=== PATIENT | female | born 2000 | race Caucasian/White ===

== ENCOUNTER 2021-07-13 23:56 | Emergency (ER) | payer SELFPAY ==
[~2021-07-13] VITALS: Ht 157.5 cm; Wt 50.8 kg
[2021-07-13 23:58] VITALS: BP 109/61
== END 2021-07-14 06:58 | disposition left against medical advice (07) ==
LOC: ER 23:56
DX: G43.909 Migraine, unspecified, not intractable, without status migrainosus (principal); R11.2 Nausea with vomiting, unspecified; Z53.21 Procedure and treatment not carried out due to patient leaving prior to being seen by health care provider

== ENCOUNTER 2025-04-07 05:54 | Inpatient (IN) | payer MEDICAID, OTHER ==
[~2025-04-07] VITALS: Ht 157.5 cm; Wt 54.5 kg
[2025-04-07 06:33] VITALS: O2SAT 99
[2025-04-07] MEDS: SODIUM CHLORIDE 0.9% 1,000 ML IV ONE ×3 (06:38→09:12)
--- NOTE | 2025-04-07 06:41 | ED.PDOC ---
SOCK KNITTER HPI Comments This is a 25 year old female KEMALA presenting to the ED with chief complaint of vaginal bleeding with possible miscarriage. Patient reports that she has been experiencing heavy vaginal bleeding with associated clots since yesterday, but was too scared to come to the hospital until now due to the heavy bleeding. EMS relays that the patient was told last week at [facility] that she was 8-9 weeks according to their US, but has not seen an OBGYN since then. EMS states patient has history of 1 in the past and 1 miscarriage due to ectopic , losing her left fallopian tube in the process. EMS notes patient's family estimated about 3L of blood loss since yesterday. Patient denie s any N/V, chest pain, SOB, fever, or chills. Chief Complaint: Vaginal Bleed Time Seen by MD: 06:35 Reviewed Notes: Nurses Notes, Planer Tailer Notes, Medications, Allergies Allergies: Coded Allergies: NO KNOWN ALLERGIES (Unverified , 07/14/21) Information Source: Patient, Emergency Med Personnel Mode of Arrival: EMS Timing: Days Prehospital treatment: None Severity: Severe Bleeding Quality: Bright Red, Clotted Onset Of Mass/Bleeding: Spontaneous Sexual Activity: Last Consensual [place]: Unknown History of: Previous Ectopic, Current Associated Signs and Symptoms: Vaginal Bleeding Past Medical History PAST MEDICAL HISTORY: Denies Surgical History: Denies all surgeries SPRING COILER History: Ectopic , Therapeutic 3 AB 3 Family History Family History: Reviewed,noncontributory to illness Social History Smoker: Non-Smoker Alcohol: Occasionally Drugs: Marijuana Lives In: Home Constitutional: denies: chills, diaphoresis, fatigue, fever, malaise, sweats, weakness, others EENTM: denies: blurred vision, double vision, ear bleeding, ear discharge, ear drainage, ear pain, ear ringing, eye pain, eye redness, hearing loss, mouth pain, mouth swelling, nasal discharge, nose bleeding, nose congestion, nose pain, photophobia, tearing, throat pain, throat swelling, voice changes, others Respiratory: denies: cough, hemoptysis, orthopnea, SOB at rest, shortness of breath, SOB with excertion, stridor, wheezing, others Cardiovascular: denies: chest pain, dizzy spells, diaphoresis, Dyspnea on exertion, edema, irregular heart beat, left arm pain, lightheadedness, palpitations, PND, syncope, others Gastrointestinal: denies: abdomen distended, abdominal pain, blood streaked bowels, constipated, diarrhea, dysphagia, difficulty swallowing, hematemesis, melena, nausea, poor appetite, poor fluid intake, rectal bleeding, rectal pain, vomiting, others Genitourinary: reports: abnormal vagina bleeding; denies: burning, dyspareunia, dysuria, flank pain, frequency, hematuria, incontinence, pain, , vagina discharge, urgency, others Neurological: denies: dizziness, fainting, headache, left sided numbness, left sided weakness, numbness, paresthesia, pre-existing deficit, right sided numbness, right sided weakness, seizure, speech problems, tingling, tremors, weakness, others Musculoskeletal: denies: back pain, gout, joint pain, joint swelling, muscle pain, muscle stiffness, neck pain, others Integumetry: denies: bruises, change in color, change in hair/nails, dryness, laceration, lesions, lumps, rash, wounds, others Allergic/Immunocompromised: denies: Difficulty Healing, Frequent Infections, Hives, Itching, others Hematologic/Lymphatic: denies: anemia, blood clots, easy bleeding, easy bruising, swollen glands, others Endocrine: denies: excessive hunger, excessive sweating, excessive thirst, excessive urination, flushing, intolerance to cold, intolerance to heat, unexplained weight gain, unexplained weight loss, others Psychiatric: denies: anxiety, bipolar disorder, depression, hopeless, panic disorder, schizophrenia, sleepless, suicidal, others All Other Systems: Reviewed and Negative Physical Exam General Appearance: Moderate Distress, Normal HEENT: Normal ENT Inspection, Pharynx Normal, TMs Normal Neck: Full Range of Motion, Non-Tender, Normal, Normal Inspection Respiratory: Chest Non-Tender, Lungs Clear, No Accessory Muscle Use, No Respiratory Distress, Normal Breath Sounds Cardiovascular: No Edema, No JVD, No Murmur, No Gallop, Normal Peripheral Pulses, Regular Rate/Rhythm Breast Exam: Deferred Gastrointestinal: No Organomegaly, Non Tender, No Pulsatile Mass, Normal Bowel Sounds, Soft Genitalia: Deferred Pelvic: Deferred Rectal: Deferred Extremities: No calf tenderness, Normal capillary refill, Normal inspection, Normal range of motion, Non-tender, No pedal edema Musculoskeletal : Apperance: Normal Neurologic: Alert, vertical roll operator II-XII nml as Tested, No Motor Deficits, Normal Affect, Normal Mood, No Sensory Deficits Cerebellar Function: NOT DONE Reflexes: NOT DONE Skin: Dry, Pallor, Warm Peripheral Pulses: 3+ Radial (R), 3+ Radial (L) Lymphatic: No Adenopathy Was a procedure done? Was a procedure done?: No Differential Diagnosis (SPRING COILER) Vaginal Bleeding: - Complete, - Incomplete, Blood Loss Anemia, Ectopic , Menorrhagia X-Ray, Labs, Meds, VS Vital Signs Date Time Temp Pulse Resp B/P (MAP) Pulse Ox O2 Delivery O2 Flow Rate FiO2 04/07/25 09:02 77 16 112/64 04/07/25 08:46 Room Air* 0 21 04/07/25 08:44 98.3 89 15 112/64 (80) 98 98.3 04/07/25 07:16 97 20 106/68 04/07/25 07:15 98.2 77 16 112/64 (80) 99 98.2 04/07/25 06:35 98.0 96 15 103/67 (79) 99 98.0 04/07/25 06:33 99 Room Air* 0 21 04/07/25 06:02 97.6 87 18 102/70 (81) 100 97.6 Lab Test 04/07/25 06:47 Range/Units White Blood Count 14.6 H 4.4-10.8 10^3/uL Red Blood Count 3.57 L 4.0-5.20 10^6/uL Hemoglobin 10.7 L 12.2-16.2 g/dL Hematocrit 31.4 L 36.0-46.0 % Mean Corpuscular Volume 88.2 80.0-100.0 fL Mean Corpuscular Hemoglobin 30.1 28.0-32.0 pg Mean Corpuscular Hemoglobin Concent 34.1 32.0-36.0 g/dL Red Cell Distribution Width 14.0 11.8-14.3 % Platelet Count 352 140-450 10^3/uL Mean Platelet Volume 7.9 6.9-10.8 fL Neutrophils (%) (Auto) 84.5 H 37.0-80.0 % Lymphocytes (%) (Auto) 9.7 L 10.0-50.0 % Monocytes (%) (Auto) 5.4 0.0-12.0 % Eosinophils (%) (Auto) 0.1 0.0-7.0 % Basophils (%) (Auto) 0.3 0.0-2.0 % Neutrophils # (Auto) 12.3 H 1.6-8.6 10 ^3/uL Lymphocytes # (Auto) 1.4 0.4-5.4 10 ^3/uL Monocytes # (Auto) 0.8 0-1.3 10 ^3/uL Eosinophils # (Auto) 0 0-0.8 10 ^3/uL Basophils # (Auto) 0 0-0.2 10 ^3/uL Nucleated Red Blood Cells 0.0 % Prothrombin Time 10.6 9.3-11.8 sec Prothrombin Time INR 1.00 0.9-1.15 Activated Partial Thromboplast Time 22.2 L 24.5-34.5 SEC Beta HCG, Quantitative 07981.2 H 1.5-4.2 mIU/mL Current Medications Medications (Trade) Dose Ordered Sig/Beto Route Start Time Stop Time Status Last Admin Sodium Chloride 1,000 ml @ 1,000 mls/hr Q1H ONCE IV 04/07/25 06:45 04/07/25 07:44 DC 04/07/25 06:38 Sodium Chloride 1,000 ml @ 150 mls/hr Q6H40M ONCE IV 04/07/25 06:45 04/07/25 13:24 04/07/25 06:50 Ondansetron HCl (Zofran) 4 mg ONCE ONCE IV 04/07/25 07:15 04/07/25 07:16 DC 04/07/25 07:15 Morphine Sulfate 2 mg ONCE ONCE IV 04/07/25 07:15 04/07/25 07:16 DC 04/07/25 07:16 Patient pale. Vaginal bleeding. This is her 3rd with no live births. Vitals stable. Establish intravenous access. Was given fluids. OBGYN consultation. WBC elevated. Was given Rocephin. Ultrasound does reveal possible miscarriage. Explained to the patient. Continue monitoring. Time of 1ST Reevaluation: 07:40 Reevaluation 1ST: Unchanged Patient Education/Counseling: Diagnosis, Treatment Family Education/Counseling: No Family Present Additional Information Previous visits reviewed: 07/13/21 for headache The following tests were ordered, and results were reviewed by me: CBC, Type/Screen, UA, BHCG Quant, PTPTT, OB US Additional Information was gathered from interviewing the following independent historians: EMS I reviewed and agreed with the following test results read by other providers: OB US I discussed treatment and results with medical personnel and: patient Comprehensive systems review obtained and negative except for what is stated in the HPI. Departure 1 Departure Time of Disposition: 07:16 Impression: Primary Impression: Sepsis due to urinary tract infection Additional Impression: Vaginal bleeding affecting early Disposition: ADMITTED INPATIENT Admit to: Med Surg Condition: Guarded Critical Care Note Critical Care Time?: Yes (90 min-critical care time only) Critical care comment: Continue to monitor Stability Stability form required: No Heart Score Heart Score: Heart Score Response (Comments) Value History N/A 0 EKG N/A 0 Age N/A 0 Risk Factors N/A 0 Troponin N/A 0 Total 0 I personally scribed for SARA LEON MD ([email or web address]) on 04/07/25 at 06:41. Electronically submitted by Kennedy Sousa ([email or web address]). I personally scribed for SARA LEON MD ([email or web address]) on 04/07/25 at 06:41. Electronically submitted by Kennedy Sousa ([email or web address]). SARA LEON MD Apr 07, 2025 06:41
[2025-04-07] MEDS: ONDANSETRON HCL 4 MG/2 ML VIAL IV ONE ×2 (07:15→09:11)
[2025-04-07] MEDS: MORPHINE SULFATE INJ 2 MG/ml SYRG IV ONE ×2 (07:16→09:12)
[2025-04-07 07:28] LABS: Hematocrit 31.4 % (36.0-46.0); Hemoglobin 10.7 g/dL (12.2-16.2); Mean Corpuscular Hemoglobin 30.1 pg (28.0-32.0); Mean Corpuscular Volume 88.2 fL (80.0-100.0); Nucleated Red Blood Cells % 0.0 %
[2025-04-07 07:43] LABS: INR 1.0 (0.9-1.15); Partial Thromboplastin Time 22.2 SEC (24.5-34.5); Prothrombin Time 10.6 sec (9.3-11.8)
[2025-04-07 08:44] VITALS: PULSE 89; RESP 15; O2SAT 98
--- NOTE | 2025-04-07 08:56 | DVH ---
OB ULTRASOUND <14 WEEKS: HISTORY: misca TECHNIQUE: Multiple real-time grayscale sonographic images of the pelvis with duplex Doppler color f low, spectral and M-mode analysis. TRANSDUCERS: Transabdominal FINDINGS: The uterus measures 9.2 x 6.0 x 5.6 cm. The cervix not well visualized. Right ovary is not well visualized due to obscuration bowel gas. Left ovary measures 3.9 x 1.1 x 1.7 cm with normal Doppler color flow The endometrium is heterogeneously thickened measuring 2.7 cm. No evidence of internal flow on color doppler IMPRESSION: Heterogeneous and thickened endometrium measuring 2.7 cm suggestive of blood products. No evidence of internal flow on color doppler in the endometrium to suggest retained products of conception. No intrauterine is visualized at this time. Correlate with beta HCG and short-term follow- up pelvic ultrasound.
[2025-04-07] MEDS: cefTRIAXone 1GM/50ML D5W 50 ML IV ONE (09:21)
[2025-04-07] MEDS: CLINDAMYCIN 300MG IV 50 ML IV ONE (09:21)
[2025-04-07] MEDS ORDERED: TERBUTALINE SULFATE 1 MG/ML 1ML VIAL SC PRN (10:45)
[2025-04-07] MEDS: LACT. RINGERS/OXYTOCIN 20UNITS 1,000 ML IV SCH ×2 (10:45→15:30)
[2025-04-07] MEDS ORDERED: MORPHINE SULFATE INJ 2 MG/ml SYRG IV PRN (11:00)
[2025-04-07] MEDS ORDERED: ONDANSETRON HCL 4 MG/2 ML VIAL IV PRN (11:00)
[2025-04-07] MEDS ORDERED: HYDROcodone-ACET 5/325MG TAB PO PRN (11:00)
--- NOTE | 2025-04-07 11:15 | DVHHP2 ---
History of Present Illness Reason for Visit: Vaginal bleeding with possible miscarriage History of Present Illness Margarette Flores is a 25-year-old female with past medical history of ruptured ectopic status post with blood transfusions who presents to the ED with vaginal bleeding and possible miscarriage. Patient reports that the heavy vaginal bleeding started around 3:00 p.m. yesterday. She reports that she was about 9 weeks and found out when she was hospitalized at [facility]. Patient reports that she was in the hospital on March 24. She also reports that she had a prior ectopic in June. She reports that she went through about 8-10 pads since yesterday. Her boyfriend Anand is at the bedside. Patient reports that she was feeling weak yesterday and when she is trying to go to the restroom she had to lay down on the floor. She also reports that she was using marijuana and drinking before her . Patient denies any recent trauma or injury, recent sick contacts, recent travels, recent ingestion of spoiled food, abdominal pain, nausea, vomiting, diarrhea, urinary symptoms, chest pain, shortness of breath, fever, or chills. Past Medical History Ruptured ectopic Blood transfusions Past Surgical History: Family History: None Smoke: No ALCOHOL: none (Quit) Drugs: Marijuana (Quit) Lives: with Family Domestic Violence: Neg Review of Systems Other Vaginal bleeding Allergies: Coded Allergies: NO KNOWN ALLERGIES (Unverified , 07/14/21) Medications Current Medications Medications Dose Ordered Sig/Beto Route Start Time Stop Time Status Last Admin Dose Admin Oxytocin 1,000 ml @ 6 ml/hr Q24H IV 04/07/25 10:45 Terbutaline Sulfate 0.25 mg ONCE PRN SC 04/07/25 10:45 Exam Vital Signs Vital Signs Date Time Temp Pulse Resp B/P (MAP) Pulse Ox O2 Delivery O2 Flow Rate FiO2 04/07/25 09:12 89 15 112/64 04/07/25 08:46 Room Air* 0 21 04/07/25 08:44 98 04/07/25 08:44 98.3 98.3 General Appearance: Alert, Oriented X3, Cooperative, No acute distress HEENT: Atraumatic, PERRLA, EOMI, Mucous membr. moist/pink Respiratory: Clear to auscultation, Normal air movement Cardiovascular: Regular rate, Normal S1, Normal S2 Abdominal: Normal bowel sounds, Soft Extremities: Normal pulses Skin: No significant lesion Neuro: Normal speech, Strength at 5/5 X4 ext, Normal tone, Sensation intact Psych/Mental Status: Mental status NL, Mood NL Labs/Xrays Labs Test 04/07/25 09:30 04/07/25 06:47 Range/Units Lactic Acid Level 0.8 0.4-2.0 mmol/L White Blood Count 14.6 H 4.4-10.8 10^3/uL Red Blood Count 3.57 L 4.0-5.20 10^6/uL Hemoglobin 10.7 L 12.2-16.2 g/dL Hematocrit 31.4 L 36.0-46.0 % Mean Corpuscular Volume 88.2 80.0-100.0 fL Mean Corpuscular Hemoglobin 30.1 28.0-32.0 pg Mean Corpuscular Hemoglobin Concent 34.1 32.0-36.0 g/dL Red Cell Distribution Width 14.0 11.8-14.3 % Platelet Count 352 140-450 10^3/uL Mean Platelet Volume 7.9 6.9-10.8 fL Neutrophils (%) (Auto) 84.5 H 37.0-80.0 % Lymphocytes (%) (Auto) 9.7 L 10.0-50.0 % Monocytes (%) (Auto) 5.4 0.0-12.0 % Eosinophils (%) (Auto) 0.1 0.0-7.0 % Basophils (%) (Auto) 0.3 0.0-2.0 % Neutrophils # (Auto) 12.3 H 1.6-8.6 10 ^3/uL Lymphocytes # (Auto) 1.4 0.4-5.4 10 ^3/uL Monocytes # (Auto) 0.8 0-1.3 10 ^3/uL Eosinophils # (Auto) 0 0-0.8 10 ^3/uL Basophils # (Auto) 0 0-0.2 10 ^3/uL Nucleated Red Blood Cells 0.0 % Prothrombin Time 10.6 9.3-11.8 sec Prothrombin Time INR 1.00 0.9-1.15 Activated Partial Thromboplast Time 22.2 L 24.5-34.5 SEC Beta HCG, Quantitative 62033.2 H 1.5-4.2 mIU/mL OB ULTRASOUND <14 WEEKS: HISTORY: misca TECHNIQUE: Multiple real-time grayscale sonographic images of the pelvis with duplex Doppler color flow, spectral and M-mode analysis. TRANSDUCERS: Transabdominal FINDINGS: The uterus measures 9.2 x 6.0 x 5.6 cm. The cervix not well visualized. Right ovary is not well visualized due to obscuration bowel gas. Left ovary measures 3.9 x 1.1 x 1.7 cm with normal Doppler color flow The endometrium is heterogeneously thickened measuring 2.7 cm. No evidence of internal flow on color doppler IMPRESSION: Heterogeneous and thickened endometrium measuring 2.7 cm suggestive of blood products. No evidence of internal flow on color doppler in the endometrium to suggest retained products of conception. No intrauterine is visualized at this time. Correlate with beta HCG and short-term follow-up pelvic ultrasound. SEPSIS Sepsis Screen Date sepsis recognized/suspect: Apr 07, 2025 Time Sepsis recognized/suspect: 849 Recent Procedure: No On Antibiotic Therapy: No Respiratory Rate >20: No Heart Rate >90: No Temp<36 C (96.8 F) or >38.3 C: No SBP <90 or MAP <65 mmHG: No New Acute Mental Status Change: No Is the patient on CPAP, BIPAP,: No Physician Orders Ob Ultrasound Comp Less 14wks (04/07/25 06:33) Urinalysis (04/07/25 06:33) Sodium Chloride 0.9% (04/07/25 06:45) Blood Culture (04/07/25 09:12) In Addition To Intrapartum Md (04/07/25 10:41) Obtain Baseline Fht Monitoring (04/07/25 10:41) Obtain Consent For Oxytocin In (04/07/25 10:41) Perform Sve For Baseline Of Ce (04/07/25 10:41) Cancel Any Pre-Existing Iv Ord (04/07/25 10:41) Lact. Ringers/Oxytocin 20units (Oxytocin (04/07/25 10:45) Continious Fht Monitoring (04/07/25 10:41) Bp, P, R Q15 Min (04/07/25 10:41) Temperature (04/07/25 10:41) Bedrest (04/07/25 10:41) BRP (04/07/25 10:41) May Sit Or Stand At Bedside (04/07/25 10:41) Assess Cervical Change (04/07/25 10:41) Notify Provider PERPOLICY (04/07/25 10:41) If Uterine Tachysystole (04/07/25 10:41) Terbutaline Inj (Brethine Inj) (04/07/25 10:45) If Uterine Tachysystole Resolv (04/07/25 10:41) If Uterine Tachysystole Resolv (04/07/25 10:41) Admit (04/07/25 10:59) Allergies (04/07/25 10:59) Code Status (04/07/25 10:59) Hydrocodone-Acet 5/325mg Tab ([place] (04/07/25 11:00) Ondansetron Hcl (Zofran) (04/07/25 11:00) Complete Blood Count (04/08/25 04:00) Comprehensive Metabolic Panel (04/08/25 04:00) Acetaminophen Tablet (Tylenol Tablet) (04/07/25 11:00) Morphine Sulfate Injection (04/07/25 11:00) Sequential Compression Device (04/07/25 ) Ceftriaxone Ivpb Rocephin (04/07/25 11:00) Npo Except For Medications (04/07/25 11:06) Npo (Nothing By Mouth) Diet (04/07/25 Lunch) Vital Signs Date Time Temp Pulse Resp B/P (MAP) Pulse Ox O2 Delivery O2 Flow Rate FiO2 04/07/25 09:12 89 15 112/64 04/07/25 09:02 77 16 112/64 04/07/25 08:46 Room Air* 0 21 04/07/25 08:44 89 15 98 Room Air* 0 21 04/07/25 08:44 98.3 89 15 112/64 (80) 98 98.3 04/07/25 07:16 97 20 106/68 04/07/25 07:15 98.2 77 16 112/64 (80) 99 98.2 04/07/25 06:35 98.0 96 15 103/67 (79) 99 98.0 04/07/25 06:33 99 Room Air* 0 21 04/07/25 06:02 97.6 87 18 102/70 (81) 100 97.6 Laboratory Tests Test 04/07/25 06:47 04/07/25 09:30 White Blood Count 14.6 10^3/uL (4.4-10.8) H Lactic Acid Level 0.8 mmol/L (0.4-2.0) Medications Medications Dose Ordered Sig/Beto Route Start Time Stop Time Status Last Admin Dose Admin Ceftriaxone Sodium 50 ml @ 100 mls/hr ONCE ONCE IV 04/07/25 09:15 04/07/25 09:44 DC 04/07/25 09:21 100 MLS/HR Clindamycin Phosphate 50 ml @ 50 mls/hr ONCE ONCE IV 04/07/25 09:15 04/07/25 10:14 DC 04/07/25 09:21 50 MLS/HR Morphine Sulfate 2 mg ONCE ONCE IV 04/07/25 07:15 04/07/25 07:16 DC 04/07/25 07:16 2 MG Morphine Sulfate 2 mg ONCE ONCE IV 04/07/25 09:15 04/07/25 09:16 LA 04/07/25 09:12 2 MG Ondansetron HCl 4 mg ONCE ONCE IV 04/07/25 07:15 04/07/25 07:16 DC 04/07/25 07:15 4 MG Ondansetron HCl 4 mg ONCE ONCE IV 04/07/25 09:15 04/07/25 09:16 DC 04/07/25 09:11 4 MG Sodium Chloride 1,000 ml @ 150 mls/hr Q6H40M ONCE IV 04/07/25 06:45 04/07/25 13:24 04/07/25 06:50 150 MLS/HR Sodium Chloride 1,000 ml @ 1,000 mls/hr Q1H ONCE IV 04/07/25 06:45 04/07/25 07:44 DC 04/07/25 06:38 1,000 MLS/HR Sodium Chloride 1,000 ml @ 1,000 mls/hr Q1H ONCE IV 04/07/25 09:15 04/07/25 10:14 DC 04/07/25 09:12 1,000 MLS/HR Assessment/Plan Assessment/Plan Assessment Vaginal bleeding with possible miscarriage History of ruptured ectopic with and blood transfusions Normocytic Anemia Leukocytosis with probable miscarriage History of marijuana use History of alcohol use Plan Admit to med surge IV antibiotics-ceftriaxone Clindamycin ceftriaxone given in ED NS 3 L given in ED Antiemetics Pain management Lactic noted Blood cultures PT/PTT UA Urine culture HCG noted Ob ultrasound noted Type and screen LR with Pitocin NPO for now until after D&C No home medications reported per patient DVT prophylaxis-not indicated patient ambulating PUD prophylaxis-not indicated no history of GERD or GI bleed Discussed plan of care with patient, patient's boyfriend, and nurse Ob consult Counseled patient on continuous of cessation of marijuana and alcohol use 43495 Behavior change smoking greater than 10 minutes about use of other options also gave option of nicotine patch 52506 Preventive counseling healthy eating habits, physical activity, and regular checkups Plan discussed with: Patient, Spouse My Orders Orders - KASEY CARDOZA Procedure Category Date Status Time In Addition To DHAVAL 725 In Process Intrapartum 10:41 Obtain Baseline Fht DHAVAL 7/25 In Process Monitoring 10:41 Obtain Consent For DHAVAL 25 In Process Oxytocin In 10:41 Perform Sve For DHAVAL 725 In Process Baseline Of Ce 10:41 Cancel Any DHAVAL 725 In Process Pre-Existing Iv Ord 10:41 Lact. PHA 04/07/25 In Process Ringers/Oxytocin 10:45 Continious Fht DHAVAL 25 In Process Monitoring 10:41 Bp, P, R Q15 Min DHAVAL 25 In Process 10:41 Temperature DHAVAL 25 In Process 10:41 Bedrest DHAVAL 04/07/25 In Process 10:41 BRP DHAVAL 25 In Process 10:41 May Sit Or Stand At DHAVAL 724/25 In Process Bedside 10:41 Assess Cervical Change DHAVAL 25 In Process 10:41 Notify Provider DHAVAL 04/07/25 In Process 10:41 If Uterine DHAVAL 725 In Process Tachysystole 10:41 Terbutaline Inj PHA 04/07/25 In Process (Brethine Inj) 10:45 If Uterine DHAVAL 7/24/25 In Process Tachysystole Resolv 10:41 If Uterine DHAVAL 7/25 In Process Tachysystole Resolv 10:41 Admit ADMIT 04/07/25 Transmitted 10:59 Allergies DHAVAL 7/25 Transmitted 10:59 Code Status CODE 04/07/25 Transmitted 10:59 Hydrocodone-Acet PHA 04/07/25 Transmitted 5/325mg Tab ([place] 11:00 Ondansetron Hcl PHA 04/07/25 Transmitted (Zofran) 11:00 Complete Blood Count LAB 04/08/25 Verified 04:00 Comprehensive LAB 04/08/25 Verified Metabolic Panel 04:00 Acetaminophen Tablet PHA 04/07/25 Transmitted (Tylenol Tablet) 11:00 Morphine Sulfate PHA 04/07/25 Transmitted Injection 11:00 Sequential DHAVAL 04/07/25 Transmitted Compression Device Ceftriaxone Ivpb PHA 04/07/25 Transmitted Rocephin 11:00 Npo Except For DHAVAL 04/07/25 Transmitted Medications 11:06 Npo (Nothing By DIET 04/07/25 Transmitted Mouth) Diet Lunch Date of Service: Apr 07, 2025 Billing Provider: KASEY CARDOZA Common Visit Codes: [id number] INP/OBS CARE (HIGH) Secondary Visit Codes: [id number] COUNSELING IND, 53523-QJPPF CHNG SMOKING >10MIN KASEY CARDOZA Apr 07, 2025 11:15
--- NOTE | 2025-04-07 11:30 | DVHHP ---
ADMIT DATE: 04/07/2025 CHIEF COMPLAINT: Heavy vaginal bleeding. HISTORY OF PRESENT ILLNESS: The patient is admitted for incomplete AB, beta-hCG of 30,000, endometrial thickness is about 3 cm. She continues having a lot of bleeding in the Emergency Room. Subsequently, the patient was started on Pitocin and consented for D and C suction curettage. PAST MEDICAL HISTORY: None. PAST SURGICAL HISTORY: None. SOCIAL HISTORY: None. FAMILY HISTORY: None. MUSIC ARRANGER HISTORY: ____. ALLERGIES: No known drug allergies. REVIEW OF SYSTEMS: Consistent with HPI. PHYSICAL EXAMINATION: VITAL SIGNS: Stable. Afebrile. HEENT: Within normal limits. CARDIOVASCULAR: Regular rate and rhythm. LUNGS: Clear to auscultation. BREASTS: Symmetrical. No masses. ABDOMEN: Soft and nontender. PELVIC: Cervix 1 cm ____. EXTREMITIES: No clubbing, cyanosis, or edema. IMPRESSION: Incomplete AB. PLAN: D and C suction curettage. Informed consent obtained. Per patient, the patient has been bleeding 10 pads per hour. DO KAMI Joy/PORFIRIO/ENDER TID: [id number] RECEIPT: [id number]
[2025-04-07] MEDS ORDERED: fentaNYL CITRATE 100 MCG/2 ML VL ONE (12:11)
[2025-04-07] MEDS ORDERED: PROPOFOL 10 MG/ML 20 ML IV ONE ×2 (12:11→12:23)
[2025-04-07] MEDS ORDERED: HYDROmorphone HCL 2 MG/ML VL/or syr ONE (12:13)
[2025-04-07] MEDS ORDERED: ONDANSETRON HCL 4 MG/2 ML VIAL ONE (12:33)
--- NOTE | 2025-04-07 12:36 | DVHOP2 ---
Operative Report DATE OF OPERATION: 04/07/25 PREOPERATIVE DIAGNOSES: Incomplete POSTOPERATIVE DIAGNOSES: Incomplete SURGEON: Nevin Landrum D.O. ANESTHESIOLOGIST: HERNAN TYPE OF ANESTHESIA : MAC CONSENT: The patient was informed of the risks and benefits of the procedure. The patient was informed of the risks and benefits of the procedure. These include but are not limited to , complications of anesthesia, postoperative infection, incomplete relief of symptoms, recurrence of symptoms, damage to blood vessels, nerves and tendons, deep venous thrombosis, pulmonary embolism and possible need for repeat surgery in the future. FINDINGS: Cervix is 1 cm and uterus 9 weeks' size. Adnexa nonpalpable. TISSUE TO PATHOLOGY: POC. PROCEDURES: Dilatation and curettage and suction curettage. PROCEDURE IN DETAIL: The patient was taken to the operating room where she was placed under MAC anesthesia. The patient was then prepped and draped in the usual sterile manner in dorsal lithotomy position. Bladder was emptied using straight catheter. Examination under anesthesia revealed the above findings. A weighted speculum was placed in the vagina. Anterior lip of the cervix was grasped using a single-tooth tenaculum. Cervix was dilated. Uterus was sounded to 9 cm. Products of conception were evacuated using suction curette, size #7, sharp curetting of endometrial cavity was done. The patient tolerated the procedure well. All the instruments were removed from vagina and cervix. The patient was taken to the recovery room in a stable condition. ESTIMATED BLOOD LOSS: 200 mL Visit Coding OBGYN Date of Service: Apr 07, 2025 Billing Provider: NEVIN LANDRUM DO PARADICHLOROBENZENE TENDER Common Visit Codes: [id number] INP/OBS CARE (HIGH) PARADICHLOROBENZENE TENDER Procedure Codes: 82433-GG OF INCOMP AB,ANY TRIMESTER, 42938-BQ OF MISSED AB,SURG 2ND TRI NEVIN LANDRUM DO Apr 07, 2025 12:36
[2025-04-07 12:42] VITALS: O2SAT 100
[2025-04-07 17:00] VITALS: BP 110/71; PULSE 102; RESP 18; TEMP 97.3; O2SAT 99
[2025-04-07 20:00] VITALS: PULSE 92; RESP 16; O2SAT 98
[2025-04-07 21:00] VITALS: BP 120/77; PULSE 92; RESP 16; TEMP 97.4; O2SAT 98
[2025-04-08 06:48] LABS: Hematocrit 28.0 % (36.0-46.0); Hemoglobin 9.6 g/dL (12.2-16.2); Mean Corpuscular Hemoglobin 30.9 pg (28.0-32.0); Mean Corpuscular Volume 89.6 fL (80.0-100.0); Nucleated Red Blood Cells % 0.1 %
[2025-04-08 07:01] LABS: Alanine Aminotransferase < 9 U/L (7-40); Albumin 3.5 g/dL (3.2-4.8); Alkaline Phosphatase 36 U/L (46-116); Anion Gap 8 (5-15); BUN/Creatinine Ratio 10.2 (10.0-20.0); Bilirubin, Total 0.6 mg/dL (0.2-1.0); Blood Urea Nitrogen < 5 mg/dL (9-23); Calcium 9.2 mg/dL (8.7-10.4); Carbon Dioxide 25 mmol/L (20-31); Chloride 105 mmol/L (98-107); Glucose 80 mg/dL (74-106); Potassium 3.9 mmol/L (3.5-5.1); Sodium 138 mmol/L (136-145); Total Protein 5.3 g/dL (5.7-8.2)
[2025-04-08] MEDS: ACETAMINOPHEN 325 MG TAB PO PRN (07:40)
[2025-04-08 09:00] VITALS: BP 103/64; PULSE 97; RESP 16; TEMP 98.3; O2SAT 98
[2025-04-08] MEDS: cefTRIAXone 1GM/50ML D5W 50 ML IV SCH (09:24)
[2025-04-08 10:42] LABS: Hepatitis B Surface Antigen Negative (Negative); Hepatitis C Antibody Negative (Negative)
[2025-04-08] MEDS: FERROUS SULFATE 325mg EC TAB PO SCH (11:14)
[2025-04-08] MEDS: SODIUM CHLORIDE 0.9% 1,000 ML IV SCH (11:14)
--- NOTE | 2025-04-08 12:10 | DVHPNRES ---
Progress Note Date Seen: Apr 08, 2025 Resident Creating Document: BALA BENÍTEZ RESIDENT Has the PT tested + for MRSA If YES, has PT been informed?: No Medical Necessity Reason Pt with a Central, PICC or Fol: No Subjective Review of Systems Margarette Alicea is a 25-year-old female, with past medical history of 2 previous first trimester loss 2018 and 2022. One ruptured ectopic (left fallopian) on 06/2024. The patient presented to the ED with pelvic pain, cramp like, intermittent with vaginal bleeding and possible miscarriage. Patient reported that the heavy vaginal bleeding, with blood clots, using about 8-10 pads. She reports that she was about 9 weeks . Patient reports that she was feeling weak yesterday and when she is trying to go to the restroom she had to lay down on the floor. She also reports that she was using marijuana and drinking before her . Patient denies any recent trauma or injury, recent sick contacts, recent travels, recent ingestion of spoiled food, abdominal pain, nausea, vomiting, diarrhea, urinary symptoms, chest pain, shortness of breath, fever, or chills. The pelvic US showed retain products of the conception, Dilatation and Curettage was ordererd. Today, the patient is one day post D&C. She was examined at the bedside, Patient reports feeling better, no pelvic pain and only vaginal spotting. Vital signs and labs were reviewed, B-hCG is 37,347.2. Oxitocyn was discontinued today by Dr. Landrum. We will follow up this patient closely. ROS: Constitutional: Yes: Weakness, Malaise; No: Fever, Chills, Sweats, Other Eyes: No: Pain, Vision change, Conjunctivae inflammation, Eyelid inflammation, Other, Redness ENT: No: Ear pain, Ear discharge, Nose pain, Nose discharge, Nose congestion, Mouth pain, Mouth swelling, Throat pain, Throat swelling, Other Respiratory: No: Cough, Dry, Shortness of breath, SOB with excertion, Wheezing, Hemoptysis, Pleuritic Pain, Sputum, Wheezing, Other Cardiovascular: No: Chest Pain, Palpitations, Orthopnea, Paroxysmal Noc. Dyspnea, Edema, Lt Headedness, Other Gastrointestinal: No: Diarrhea, Constipation, Melena, Hematochezia, Other Genitourinary: No Dysuria, No Frequency, No Incontinence, No Hematuria, No Retention, No Other Musculoskeletal: No: other, neck pain, shoulder pain, arm pain, back pain, hand pain, leg pain, foot pain Skin: No: Rash, Lesions, Jaundice, Bruising, Other Neurological: No: Weakness, Numbness, Incoordination, Change in speech, Confusion, Seizures, Other Allergies: Unknown Objective vital signs Vital Sign Date Time Temp Pulse Resp B/P (MAP) Pulse Ox O2 Delivery O2 Flow Rate FiO2 04/08/25 09:00 98.3 97 16 103/64 (77) 98 98.3 04/08/25 08:00 Room Air* 0 21 Total Intake and Output 04/07/25 04/07/25 04/08/25 15:00 23:00 07:00 Intake Total 2800 ml 150 ml 240 ml Balance 2800 ml 150 ml 240 ml medications Current Medications Medications Dose Ordered Sig/Beto Route Start Time Stop Time Status Last Admin Dose Admin Acetaminophen/ Hydrocodone Bitart 1 tab Q4HP PRN PO 04/07/25 11:00 Ondansetron HCl 4 mg Q4HP PRN IV 04/07/25 11:00 Acetaminophen 650 mg Q6HP PRN PO 04/07/25 11:00 04/08/25 07:40 650 MG Morphine Sulfate 2 mg Q4HPRN PRN IV 04/07/25 11:00 Ceftriaxone Sodium 50 ml @ 100 mls/hr DAILY@09 IV 04/08/25 09:00 04/08/25 09:24 100 MLS/HR Ferrous Sulfate 325 mg BIDWM PO 04/08/25 09:45 04/08/25 11:14 325 MG Sodium Chloride 1,000 ml @ 60 mls/hr [id number] IV 04/08/25 09:45 04/08/25 11:14 60 MLS/HR Examination General Appearance: Alert, Oriented X3, Cooperative, No acute distress HEENT: Atraumatic, PERRLA, EOMI, Mucous membr. moist/pink Respiratory: Clear to auscultation, Normal air movement Cardiovascular: Regular rate, Normal S1, Normal S2 Abdominal: flat, soft, depressible, with normal bowel sounds, non tender. Extremities: Normal pulses Skin: No significant lesion Neuro: Normal speech, Strength at 5/5 X4 ext, Normal tone, Sensation intact Psych/Mental Status: Mental status NL, Mood NL laboratory and microbiology Laboratory Tests 04/08/25 05:41 Test 04/08/25 05:41 Range/Units Serum Glucose 80 74-106 mg/dL Microbiology Date/Time Source Procedure Growth Status 04/07/25 09:30 Blood Blood Culture - Preliminary NO GROWTH AFTER 24 HOURS OF INCUBATION. Resulted Problem List/Assessment/Plan Problem List/Assessment/Plan #Vaginal bleeding due to incomplete IV Fluids Morphine 1g IV Dilatation and curettage IV antibiotics-ceftriaxone Antiemetic REGISTERED PHLEBOTOMIST PART TIME consult: NPO for now until after D&C #Normocytic Anemia Iron tablets #Sepsis due to retain products of the conception #Leukocytosis with probable miscarriage Dilatation and curettage IV antibiotics-Clindamycin ceftriaxone given in ED Blood cultures Urine culture #Substance abuse disorder/ marijuana use Counseling #Rule out aPLS 3 abortions and 1 ectopic REGISTERED PHLEBOTOMIST PART TIME consult Plan discussed with , nursing staff, PCP- Wilder Rivreo MD Code status: Full code Total time spent on patient evaluation, chart review, assessment and plan, discussion discussion >35 minutes Plan discussed with: goals of care discussed with the Patient, patients agrees with the plan. Plan discussed with: Patient Date of Service: Apr 08, 2025 Billing Provider: IDANIA BROOKS MD Common Visit Codes: [id number] INP/OBS CARE(HIGH) BALA BENÍTEZ RESIDENT Apr 08, 2025 12:10 IDANIA BROOKS MD Apr 13, 2025 01:41
[2025-04-08 12:22] LABS: Iron 68.0 ug/dL (50-170)
[2025-04-08 12:25] LABS: Total Iron Binding Capacity 258.0 ug/dL (250-425)
[2025-04-08 13:00] VITALS: BP 101/62; PULSE 105; RESP 18; TEMP 97.9; O2SAT 99
--- NOTE | 2025-04-08 13:03 | DVHPN2 ---
Chief Complaints Patient reports: No new complaints, Feels better Nursing reports: No new complaints Objective Vitals Vital Signs Date Time Temp Pulse Resp B/P (MAP) Pulse Ox O2 Delivery O2 Flow Rate FiO2 04/08/25 09:00 98.3 97 16 103/64 (77) 98 98.3 04/08/25 08:00 Room Air* 0 21 Medications Current Medications Medications (Trade) Dose Ordered Sig/Beto Route PRN Reason Start Time Stop Time Status Last Admin Ceftriaxone Sodium 50 ml @ 100 mls/hr DAILY@09 IV 04/08/25 09:00 04/08/25 09:24 Ferrous Sulfate 325 mg BIDWM PO 04/08/25 09:45 04/08/25 11:14 Sodium Chloride 1,000 ml @ 60 mls/hr [id number] IV 04/08/25 09:45 04/08/25 11:14 Others scant spotting Studies Laboratory Tests 04/08/25 05:41 Test 04/08/25 05:41 Range/Units Serum Glucose 80 74-106 mg/dL Ass/Plan Assessment s/p D AND C,SUCTION CURRETTAGE FOR INCOMPELET AB-STABLE Plan DC PITOCIN WILL SIGN OFF FU 2 WKS WITH ME Visit Coding OBGYN Date of Service: Apr 08, 2025 Billing Provider: NEVIN BRITO DO BULLET CHARGING MACHINE OPERATOR Common Visit Codes: [id number] INP/OBS CARE(HIGH) NEVIN BRITO DO Apr 08, 2025 13:03
[2025-04-08 17:00] VITALS: BP 100/60; PULSE 105; RESP 18; TEMP 98.5; O2SAT 98
[2025-04-08 19:52] LABS: Hematocrit 30.3 % (36.0-46.0); Hemoglobin 10.5 g/dL (12.2-16.2); Mean Corpuscular Hemoglobin 31.0 pg (28.0-32.0); Mean Corpuscular Volume 89.5 fL (80.0-100.0); Nucleated Red Blood Cells % 0.0 %
[2025-04-08 19:58] LABS: Sodium 141 mmol/L (136-145)
[2025-04-08 19:59] LABS: Anion Gap 9 (5-15); Carbon Dioxide 24 mmol/L (20-31); Chloride 108 mmol/L (98-107); Potassium 3.5 mmol/L (3.5-5.1)
[2025-04-08 20:00] VITALS: PULSE 98; RESP 16
[2025-04-08 20:00] LABS: Calcium 9.1 mg/dL (8.7-10.4)
[2025-04-08 20:04] LABS: Glucose 95 mg/dL (74-106)
[2025-04-08 20:05] LABS: BUN/Creatinine Ratio 9.1 (10.0-20.0)
[2025-04-08 20:06] LABS: Blood Urea Nitrogen 5 mg/dL (9-23)
[2025-04-08 21:00] VITALS: BP 102/63; PULSE 98; RESP 16; TEMP 98.4; O2SAT 99
[2025-04-09 01:00] VITALS: BP 102/72; PULSE 94; RESP 18; TEMP 98.2; O2SAT 100
[2025-04-09 05:00] VITALS: BP 92/57; PULSE 102; RESP 15; TEMP 98.6; O2SAT 98
[2025-04-09 09:00] VITALS: BP 117/86; PULSE 89; RESP 18; TEMP 97.5; O2SAT 97
[2025-04-09 12:43] VITALS: BP 103/77; PULSE 95; RESP 18; TEMP 97.6; O2SAT 100
[2025-04-09] MEDS ORDERED: DOCU-94 PO (13:50)
[2025-04-09] MEDS ORDERED: FERR-7 PO (13:50)
--- NOTE | 2025-04-09 14:35 | DVHDSRES ---
Discharge Summary Date of Admission Resident Creating Document: BALA BENÍTEZ RESIDENT Apr 07, 2025 at 10:59 Date of Discharge: Apr 09, 2025 Admitting Diagnosis Vaginal bleeding Wounds: No wounds during admission stay. Labs/Diagnostic Data: Laboratory Results Test 04/08/25 19:32 04/08/25 05:41 04/07/25 09:30 04/07/25 06:47 White Blood Count 9.9 10^3/uL (4.4-10.8) Red Blood Count 3.39 10^6/uL (4.0-5.20) Hemoglobin 10.5 g/dL (12.2-16.2) Hematocrit 30.3 % (36.0-46.0) Mean Corpuscular Volume 89.5 fL (80.0-100.0) Mean Corpuscular Hemoglobin 31.0 pg (28.0-32.0) Mean Corpuscular Hemoglobin Concent 34.7 g/dL (32.0-36.0) Red Cell Distribution Width 14.3 % (11.8-14.3) Platelet Count 364 10^3/uL (140-450) Mean Platelet Volume 7.9 fL (6.9-10.8) Neutrophils (%) (Auto) 58.5 % (37.0-80.0) Lymphocytes (%) (Auto) 30.3 % (10.0-50.0) Monocytes (%) (Auto) 8.5 % (0.0-12.0) Eosinophils (%) (Auto) 1.9 % (0.0-7.0) Basophils (%) (Auto) 0.8 % (0.0-2.0) Neutrophils # (Auto) 5.8 10 ^3/uL (1.6-8.6) Lymphocytes # (Auto) 3.0 10 ^3/uL (0.4-5.4) Monocytes # (Auto) 0.8 10 ^3/uL (0-1.3) Eosinophils # (Auto) 0.2 10 ^3/uL (0-0.8) Basophils # (Auto) 0.1 10 ^3/uL (0-0.2) Nucleated Red Blood Cells 0.0 % Sodium Level 141 mmol/L (136-145) Potassium Level 3.5 mmol/L (3.5-5.1) Chloride Level 108 mmol/L (98-107) Carbon Dioxide Level 24 mmol/L (20-31) Anion Gap 9 (5-15) Blood Urea Nitrogen 5 mg/dL (9-23) Creatinine 0.55 mg/dL (0.550-1.02) Glomerular Filtration Rate Calc 131 mL/min (>90) BUN/Creatinine Ratio 9.1 (10.0-20.0) Serum Glucose 95 mg/dL (74-106) Calcium Level 9.1 mg/dL (8.7-10.4) Beta HCG, Quantitative 78022.8 mIU/mL (1.5-4.2) Iron Level 68 ug/dL (50-170) Total Iron Binding Capacity 258 ug/dL (250-425) Percent Iron Saturation 26.4 % (15-50) Ferritin 18.0 ng/mL (10-291) Total Bilirubin 0.6 mg/dL (0.2-1.0) Aspartate Amino Transferase (AST) 14 U/L (13-40) Alanine Aminotransferase (ALT) < 9 U/L (7-40) Alkaline Phosphatase 36 U/L (46-116) Total Protein 5.3 g/dL (5.7-8.2) Albumin 3.5 g/dL (3.2-4.8) Lactic Acid Level 0.8 mmol/L (0.4-2.0) Prothrombin Time 10.6 sec (9.3-11.8) Prothrombin Time INR 1.00 (0.9-1.15) Activated Partial Thromboplast Time 22.2 SEC (24.5-34.5) Hepatitis B Surface Antigen Negative (Negative) Hepatitis C Antibody Negative (Negative) Other Laboratory Tests 04/08/25 19:32 Brief Hx & Hospital Course: Review of Systems Margarette Alicea is a 25-year-old female, with past medical history of 2 previous first trimester losses on 2018 and 2022. One ruptured ectopic (left fallopian) on 06/2024. The patient presented to the ED with pelvic pain, cramp like, intermittent with vaginal bleeding and possible miscarriage. Patient reported that the heavy vaginal bleeding, with blood clots, using about 8-10 pads. She reports that she was about 9 weeks . Patient reports that she was feeling weak yesterday and when she is trying to go to the restroom she had to lay down on the floor. She also reports that she was using marijuana and drinking before her . Patient denies any recent trauma or injury, recent sick contacts, recent travels, recent ingestion of spoiled food, abdominal pain, nausea, vomiting, diarrhea, urinary symptoms, chest pain, shortness of breath, fever, or chills. The pelvic US showed retain products of the conception, Dilatation and Curettage was ordererd.On 04/08 the patient was one day post D&C. She was examined at the bedside, Patient reports feeling better, no pelvic pain and only vaginal spotting. Vital signs and labs were reviewed, B-hCG is 37,347.2. Oxitocyn was discontinued today by Dr. Landrum.. 04/09: Today, the patient was evaluated at the bedside, patient reports feeling better, minimal vaginal spotting, only when she wipes, she denies fever, nausea, vomit, diarrhea, or other complains. The vital signs and labs were reviewed with in normal limits, the B-HCG is trending down today 10,736.8, Due to a clinical improvement the patient will be discharged today. Dr. Landrum (AN EMPLOYEE SPONSOR OR ADVOCATE AND/OB) will follow up this patient as an out patient for further evaluation of aPLS. Discharge Plan: Discharge home Regular diet Counseling of life style changes: quitting smoking and marihuana usage. Ferrous sulfate 325 po qd Docusate 100mg po prn for constipation. F/U Dr. Landrum (AN EMPLOYEE SPONSOR OR ADVOCATE AND/OB) in 2 weeks F/U PCP in discharge clinic in one week. ROS: Constitutional: Yes: Weakness, Malaise; No: Fever, Chills, Sweats, Other Eyes: No: Pain, Vision change, Conjunctivae inflammation, Eyelid inflammation, Other, Redness ENT: No: Ear pain, Ear discharge, Nose pain, Nose discharge, Nose congestion, Mouth pain, Mouth swelling, Throat pain, Throat swelling, Other Respiratory: No: Cough, Dry, Shortness of breath, SOB with excertion, Wheezing, Hemoptysis, Pleuritic Pain, Sputum, Wheezing, Other Cardiovascular: No: Chest Pain, Palpitations, Orthopnea, Paroxysmal Noc. Dyspnea, Edema, Lt Headedness, Other Gastrointestinal: No: Diarrhea, Constipation, Melena, Hematochezia, Other Genitourinary: No Dysuria, No Frequency, No Incontinence, No Hematuria, No Retention, No Other Musculoskeletal: No: other, neck pain, shoulder pain, arm pain, back pain, hand pain, leg pain, foot pain Skin: No: Rash, Lesions, Jaundice, Bruising, Other Neurological: No: Weakness, Numbness, Incoordination, Change in speech, Confusion, Seizures, Other Allergies: Unknown Examination General Appearance: Alert, Oriented X3, Cooperative, No acute distress HEENT: Atraumatic, PERRLA, EOMI, Mucous membr. moist/pink Respiratory: Clear to auscultation, Normal air movement Cardiovascular: Regular rate, Normal S1, Normal S2 Abdominal: flat, soft, depressible, with normal bowel sounds, non tender. Extremities: Normal pulses Skin: No significant lesion Neuro: Normal speech, Strength at 5/5 X4 ext, Normal tone, Sensation intact Psych/Mental Status: Mental status NL, Mood NL laboratory and microbiology Assessment During Admission #Vaginal bleeding due to incomplete #Normocytic Anemia #Sepsis due to retain products of the conception #Leukocytosis with probable miscarriage #Substance abuse disorder/ marijuana use #Rule out aPLS Plan discussed with , nursing staff, PCP- Wilder Rivero MD Code status: Full code Total time spent on patient evaluation, chart review, assessment and plan, discussion discussion >35 minutes Plan discussed with: goals of care discussed with the Patient, patients agrees with the discharge plan. Condition at Discharge: Stable Final Diagnosis/Problems List #Vaginal Bleeding affecting early #Vaginal bleeding due to incomplete #Normocytic Anemia #Sepsis due to retain products of the conception #Substance abuse disorder/ marijuana use. #Possible aPLS Discharge Disposition: Home SNF Discharge Will this Physician continue t: No Discharge Instruct/Medications Diet: Regular Activity: No Restrictions, As Tolerated Follow Up/Referral: F/U with T[employer]NEL [employer]IL[employer] OPERATOR with Dr. Landrum in 2 weeks F/U with PCP in one week. Medications: Ferrous sulfate 325mg po qd Docusate 10mg po qd Scheduled Docusate Sodium (Colace), 1 CAP PO BID Ferrous Sulfate (Iron), 325 MG PO BID Discharge Statement: "Patient was advised to return to the ER or call 911 if any headaches, dizziness, shortness of breath, chest pain, abdominal pain, bleeding, fevers, or worsening of medical condition. Patient was counseled about treatment plan, medications, possible side effects, patientverbalized understanding. All questions were answered to the best of my ability. This discharge took greater then 30 minutes in planning, reviewing documentation, counseling the patient, and discussing with other team members." ASSESSMENT ASSESSMENT Assessment #Vaginal Bleeding affecting early #Vaginal bleeding due to incomplete #Normocytic Anemia #Sepsis due to retain products of the conception #Substance abuse disorder/ marijuana use. #Possible aPLS Date of Service: Apr 09, 2025 Billing Provider: IDANIA BROOKS MD Common Visit Codes: [id number]/[id number] DISCH DAY >30min BALA BENÍTEZ RESIDENT Apr 09, 2025 14:35 IDANIA BROOKS MD Apr 13, 2025 21:47
== END 2025-04-09 16:54 | disposition home or self-care (01) | DRG 543 ==
LOC: EDBD 05:54 → EDUNIT# 05:54 → ER 05:54 → OVERFLOW 10:59 → EAST 13:45
PROVIDERS: ADMIT Student in an Organized Health Care Education/Training Program; ATTEND Obstetrics & Gynecology
PROC: 10D17ZZ Extraction of Products of Conception, Retained, Via Natural or Artificial Opening (ICD-10-PCS; principal; 2025-04-07 12:11)
DX: O03.37 Sepsis following incomplete spontaneous abortion (principal); A41.9 Sepsis, unspecified organism; D64.9 Anemia, unspecified; O03.4 Incomplete spontaneous abortion without complication; Z3A.09 9 weeks gestation of pregnancy
CPT/HCPCS: 36415; 76801; 80048; 80053; 82728; 83540; 83550; 83605; 84702; 85025; 85610; 85730; 86803; 86850; 86900; 86901; 87040; 87340; 96365; 96375; 99291; 99292; G0378; J2405; J2590; J2704; J3490